=== PATIENT | male | born 1945 | race Asian ===

== ENCOUNTER 2019-08-23 06:02 | Day surgery (SDC) | payer OTHER ==
[~2019-08-23] VITALS: Ht 167.6 cm; Wt 78.9 kg
[2019-08-23] MEDS ORDERED: fentaNYL 0.05 MG/ML VIAL ONE (07:38)
[2019-08-23] MEDS ORDERED: LIDOCAINE 2% 100 MG/5 ML UJET TP ONE (07:39)
[2019-08-23] MEDS ORDERED: fentaNYL 0.05 MG/ML VIAL IVP ONE (08:30)
== END 2019-08-23 09:05 | disposition home or self-care (01) ==
LOC: MDS 06:02 → MMU 06:15 → MDS 09:05
PROVIDERS: ATTEND Internal Medicine Gastroenterology
DX: Z12.11 Encounter for screening for malignant neoplasm of colon (principal); E11.9 Type 2 diabetes mellitus without complications; Z79.84 Long term (current) use of oral hypoglycemic drugs
CPT/HCPCS: 45378; J3010